=== PATIENT | female | born 1955 | race Caucasian/White ===

== ENCOUNTER → 2017-07-26 | Outpatient (CLI) | payer MEDICARE, MEDICAID ==
[2017-07-26 12:10] LABS: BUN 10 mg/dL (7-18); GFR (ESTIMATED) 227 ML/MIN (59-)
== END ==
LOC: LAB 11:30
PROVIDERS: Surgery
DX: R19.00 Intra-abdominal and pelvic swelling, mass and lump, unspecified site (principal)

== ENCOUNTER → 2017-07-31 | Outpatient (CLI) | payer MEDICARE, MEDICAID ==
--- NOTE | 2017-07-31 19:40 | RADIOLOGY REPORT PS360 ---
CT ABD PELVIS W/ CONTRAST HISTORY: Abdominal SWE;;ING TENDERNESS 4 months.,MID ABD PAIN,POSS HERNIA history of renal cell cancer Patient Age: 62 years: Female Ordering Physician: Art Day MD TECHNIQUE: Helical CT scanning performed the abdomen and pelvis following 75 cc Isovue-370 contrast.. 10 minute Delayed images included. Sagittal coronal images from the earlier image set included. COMPARISON :CT abdomen and pelvis from 12/22/2015 and May 2015 FINDINGS Lung bases clear heart normal size Heart. There is some generous fat density along and possibly indenting the aspect of the right atrium this appears similar to 2015. If there should be chest symptoms remain with consider echocardiogram to further evaluate. Liver. No focal lesion. Question slightly nodular anterior margin the left lobe which could reflect developing cirrhosis. I would consider liver upper normal size. However the portal vein appears mildly prominent measuring just over 17 mm. Cholecystectomy. No biliary ductal dilatation. Spleen is enlarged. . Measures over 15 cm length. 16 cm AP 6-7 cm wide. The lung, generous adrenal glands bilaterally appears similar to thousand 15. This is most evident on the left and could reflect some underlying small a adrenal nodules. Stable appearance with no change. Pancreas unremarkable. Scattered para-aortic lymph nodes but these remain small & similar in size to the previous CT studies. It Right kidney again see the 2.8 x 2.6 cm mass at posterior lower pole right kidney. It contains fat & has has remained stable..-Compatible with angiomyolipoma. Left kidney. 21 mm Cyst at the mid/upper portion left kidney is slightly larger measures fluid density and does not enhance compatible with a simple cyst. I may be a small calcification at its superior lateral margin but it appears to be a benign cyst. No obstruction or calculi in either kidney. Ureters appear normal. Pelvis. Previous hysterectomy. No adnexal mass. GI tract generous stool at the right and transverse colon. Midline eventration/likely reflecting ventral diastases with focal bulging of the abdominal wall just above the umbilicus with a small umbilical hernia is below this. This is been seen previously and appears stable since 2015\ Osseous. No significant findings IMPRESSION: 1. Stable 2.8 cm angiomyolipoma posterior right kidney. 2. Only slight progression size of the 2.1 cm benign-appearing cyst at mid portion left kidney.. 3. No urinary tract calculi nor obstruction. 4. Splenomegaly 5. Question suspect mild developing cirrhosis.. Slight undulation anterior margin left lobe . Mildly prominent portal vein also noted. Liver upper normal size 6. Scattered small intraperitoneal nodes unchanged 2014 7. Stable Bulging midline abdominal wall,/ventral diastases just superior to umbilicus. Small Fat-containing umbilical hernia again noted 7. No new findings
== END ==
LOC: RAD 08:43
DX: R19.00 Intra-abdominal and pelvic swelling, mass and lump, unspecified site (principal)

== ENCOUNTER → 2017-08-16 | Outpatient (CLI) | payer MEDICARE, MEDICAID ==
[~2017-08-16] MED LIST: ALPRAZOLAM0.25 MG PO; ASSORTED FRUIT G4 GM PO; CEFDINIR 300MG300 MG PO; CRESTOR10 MG PO; CYCLOBENZAPRINE10 M1 PO; DEXAMETHASONE 4M4 MG PO; DEXILANT60 MG PO; FISH OIL 120 MG1 CAP PO; FISH OIL1000 MG PO; HYDROCHLOROTHIA25 M1 PO; INSULIN GL100 UNITS/ SC; IPRATROPIUM BROM3 M1 IH; KAPIDEX60 MG PO; LANTUS INS100 UNITS/ SC; MYRBETRIQ50 MG PO; NOVOLOG FLEX100 U/ML SC; OXYGEN IH; QUETIAPINE FUM200 M1 PO; QUETIAPINE FUM200 MG PO; ROSUVASTATIN CA10 MG PO; SYMBICORT1 AE1 IH; TRAZADONE HYDR100 MG PO; TRAZODONE100 MG PO; VENLAFAXINE HCL50 MG PO; VENTOLIN H0.09 MG/Ac IH; VICTOZA6 MG/ML SC; ZITHROMAX TRI-500 M1 PO
--- NOTE | 2017-08-16 11:14 | RADIOLOGY REPORT PS360 ---
PROCEDURE: 2-D M-mode and color Doppler study INDICATIONS FOR THE TEST: Chest pain COPDX Heart Murmur Tobacco SmokingX Palpitations Fatigue Syncope Edema Hypertension Diabetes MellitusX Rheumatic Fever SOBXDOEXObesityXHyperlipidemia Family History HD Additional History ABN EKG PATIENT INFORMATION HEIGHT: 66 WEIGHT:201 GENDER: Female B/P:120/57 2-D/M-MODE INTERPRETATION: 2-D MEASUREMENTS OBSERVED VALUES IN CMS Right Ventricular Dimension (RVDd) 1.4 Interventricular Septum (Thickness)(IVsd) 1.2 Left Ventricular Internal Dimensions(LVIDd) 5.2 Left Ventricular Posterior Wall (Thickness)(LVPWd) 1.1 Aortic Root 3.7 Aortic Cusp Separation 2.1 Left Atrial Dimensions (LAD) 3.2 2D 1. Left atrium is qualitatively mildly enlarged, left ventricle is normal size, mild concentric left ventricular hypertrophy, hyperdynamic left ventricular systolic function, visually estimated ejection fraction was 65% with no obvious regional wall motion abnormality, septum has sigmoid configuration. 2. The right atrium and right ventricle are normal size and contractility. 3. The aortic valve is minimally thickened and fibrosed . 4. The mitral and tricuspid valve are grossly normal. 5. The pulmonic valve is poorly visualized. 6. No significant pericardial effusion noted. DOPPLER INTERROGATION: Doppler interrogation of the aortic, mitral and tricuspid valvular presence of mild mitral and tricuspid regurgitation, tricuspid and jet velocity insufficient for calculation of the right ventricular systolic pressure, grade 1 diastolic dysfunction seen without tissue Doppler evidence of raised left atrial pressure CONCLUSION: 1. Qualitatively mildly enlarged left atrium, normal left ventricular size, mild concentric left ventricular hypertrophy, visually estimated ejection fraction is 65% with no obvious regional wall motion abnormality, septum has sigmoid configuration, grade 1 diastolic dysfunction seen without tissue Doppler evidence of raised left atrial pressure. 2. Mild mitral and tricuspid regurgitation. 3. No significant pericardial effusion noted.
--- NOTE | 2017-08-16 12:44 | RADIOLOGY REPORT PS360 ---
History and Indications: Congestive heart failure, diabetes, hyperlipidemia, tobacco use, family history, chest pain, shortness of breath, syncope and abnormal EKG Procedure: Patient received a 0.4 mg of Lexiscan, resting heart rate was 94 bpm resting blood pressure 141, scan maximum heart rate achieved was 113 bpm which is less than 85% of the maximum predicted heart rate and a blood pressure was 119/57. The scan patient denied any complained of chest pain or shortness of breath Electrocardiogram: Resting electrocardiogram showed sinus rhythm . With Lexiscan there is less than 1.[address] segment depression noted from the baseline EKG. The EKG portion of the Lexiscan Myoview is nondiagnostic. Cardiac stress and resting SPECT images: Cardiac stress and rest SPECT images were obtained using technetium 99 Myoview 10.5 mCi at rest and 30.7 mCi at stress, gated SPECT further analysis of segmental wall motion and calculation of ejection fraction. Cardiac stress and the rest spect images show uniform myocardial activity without segmental perfusion abnormality, computer derived ejection fraction is over 65% with no obvious regional wall motion abnormality, right ventricle is normal size and contractility. Conclusion: 1. The EKG portion of the Lexiscan Myoview is nondiagnostic. 2. No obvious scintigraphic evidence of reversible, computer derived ejection fraction is over 65% with no obvious regional wall motion abnormality, right ventricle is normal size and contractility.
== END ==
LOC: RAD 07:13
DX: R94.31 Abnormal electrocardiogram [ECG] [EKG] (principal); R06.02 Shortness of breath
CPT/HCPCS: A9502; J2785

== ENCOUNTER → 2017-09-16 | Outpatient (CLI) | payer MEDICARE ==
--- NOTE | 2017-09-16 13:01 | RADIOLOGY REPORT PS360 ---
CHEST(2 VIEWS-NOT PORTABLE) HISTORY: BRONCHITIS ORDERING PHYSICIAN: Blanca Shipley APRN PATIENT AGE: 62 years COMPARISON: 04/06/2017 FINDINGS: The cardiomediastinal silhouette and pulmonary vascularity are within normal limits. There are coronary artery calcifications. There is mild coarsening of the bronchovascular markings with mild hyperinflation consistent with obstructive chronic bronchitis. Previously noted infiltrate in right lower lobe has improved. No acute bony anomalies. IMPRESSION: 1. Obstructive chronic bronchitis. 2. Coronary artery disease
== END ==
LOC: RAD 11:15
DX: J40 Bronchitis, not specified as acute or chronic (principal)

== ENCOUNTER 2017-10-07 07:36 | Day surgery (SDC) | payer MEDICARE, MEDICAID ==
[2017-10-07 08:06] LABS: LYMPH # 1.5 K/mm3 (0.7-4.5); LYMPH % 20.5 % (10-50.0)
[2017-10-07 08:08] LABS: BUN 10 mg/dL (7-18)
[2017-10-07 08:13] LABS: GFR (ESTIMATED) 51 ML/MIN (59-)
--- NOTE | 2017-10-07 09:27 | RADIOLOGY REPORT PS360 ---
CARDIAC CATHETERIZATION DATE OF CATHETERIZATION:10/07/2017 8:13 AM PROCEDURES: 1. Left heart catheterization 2. Left ventriculogram 3. Selective coronary angiogram INDICATION FOR TEST: 1. Class III to IV angina pectoris 2. Known coronary artery disease Informed consent was obtained prior to the procedure. COMPLICATIONS: None ESTIMATED BLOOD LOSS: Less than 10 ml. TECHNIQUE: One percent lidocaine used to anesthetize the right anterior aspect of the wrist. The right radial artery was accessed via the Seldinger technique. A 6 Uzbek sheath was placed in the right radial artery. 2.5 mg of verapamil, 800 mcg of nitroglycerin and 5000 U Heparin were given through the arterial sheath. The trap catheter was also used to perform left heart catheterization and left ventriculography. At the end of the procedure the patient was transferred to the post-op holding area in stable condition for arterial sheath removal. ANGIOGRAPHIC RESULTS: 1. The left main artery has mild vascular ectasia with no focal stenosis 2. The left anterior descending artery has proximal mild vascular ectasia with 20% stenoses. Of interest during the first 2 angiographic shots the mid LAD was occluded however after the third injection the LAD then opened and had LOLIS-3 flow. 3. The ramus intermedius has a stent in its proximal segment which is widely patent free of in-stent restenosis 4. The circumflex artery is a large dominant vessel and has an ostial 30% stenosis with mild vascular ectasia. The terminal obtuse marginal artery has a moderate to severe vascular ectatic area which holds contrast and has LOLIS II flow 5. The right coronary artery is a small nondominant vessel and normal 6. The DEEWY ventriculogram reveals normal 65% 7. The left ventricular end-diastolic pressure 20 mmHg IMPRESSION: 1. Widely patent stent in the proximal ramus 2. Intermittent coronary artery spasm involving the LAD which causes complete blood loss from the mid LAD distally 3. Diffuse vascular ectasia 4. Rather severe endothelial dysfunction 5. Normal ejection fraction 6. Mildly elevated LVEDP PLAN: 1. Patient should be on a dihydropyridine calcium channel blockers such as amlodipine combined with a long-acting nitrate 2. LDL less than 55 3. Avoidance of tobacco products 4. Cardiac rehabilitation 5. Low dose diuretics may benefit by decreasing LVEDP and improving endothelial flow
[2017-10-07 12:51] VITALS: BP 117/63
== END 2017-10-07 12:52 | disposition home or self-care (01) ==
LOC: CATHLAB 07:36
PROVIDERS: Internal Medicine
PROC: B2111ZZ Fluoroscopy of Multiple Coronary Arteries using Low Osmolar Contrast (ICD-10-PCS; 2017-10-07)
PROC: B2151ZZ Fluoroscopy of Left Heart using Low Osmolar Contrast (ICD-10-PCS; 2017-10-07)
PROC: 4A023N7 Measurement of Cardiac Sampling and Pressure, Left Heart, Percutaneous Approach (ICD-10-PCS; principal; 2017-10-07 08:30)
DX: I25.119 Atherosclerotic heart disease of native coronary artery with unspecified angina pectoris (principal); F17.200 Nicotine dependence, unspecified, uncomplicated; I20.8 Other forms of angina pectoris; E11.9 Type 2 diabetes mellitus without complications; I10 Essential (primary) hypertension; R06.09 Other forms of dyspnea; J44.9 Chronic obstructive pulmonary disease, unspecified; I50.9 Heart failure, unspecified
CPT/HCPCS: C1725; C1769; J1644; Q9967

== ENCOUNTER → 2017-10-14 | Outpatient (CLI) | payer MEDICARE, MEDICAID ==
--- NOTE | 2017-10-17 15:15 | RADIOLOGY REPORT PS360 ---
EXAM: CT LUNG LOW DOSE WO CONTRAST COMPARISON: . CXR chest film 09/16/2017 HISTORY: Current Smoker.. One pack per day for 46 years = 46 pack years patient asymptomatic RADIATION DOSE: CTDI vol(CT dose Index-volume) = 2.96mGy DLP (Dose Length Product) = 119.25 mGy-cm FINDINGS: Nonspecific Nodule posterior aspect right lung Lung RADS Category: 4A. Indeterminate nodule measuring 7.9 times 8 mm x 5.7 mm is seen at the posterior aspect of right upper lung- at or just above the major fissure. Suspect may be a benign fissural nodule/node . This warrants a follow-up CT in 3-4 months evaluate for stability or interval change... Alternatively pet /CT could also be utilized and I believe a follow-up CT should be adequate. Reviewing old chest films only question that this density could be evident.-cannot be confirmed on old CXR studies.. No previous CT chest studies Benign nodules(LUNG-RADS Category1)calcified granuloma measuring up to 5 mm mm maximally is seen at the superior segment right lower lobe just posterior to the junction of major and minor fissure. Axial slice 51 sagittal 25 coronal 52. Lungs. Clear Scant very minor early emphysematous changes no pneumonia. No focal lesion. . Mediastinum Calcified right hilar nodes ovary most disease Scattered small mediastinal lymph nodes with largest measuring 11 mm it most likely reactive nodes. Generous caliber of pulmonary arteries could reflect underlying pulmonary hypertension but nonspecific. Heart Dense coronary artery circumflex and LAD incidentally noted . Pleura and chest wall: No pleural effusion or pleural lesions. No chest wall abnormalities. Mild wedge configuration at T11 most likely congenital feature at this region although could reflect a very very minor old wedge compression fracture stable since studies dating back to 2014. IMPRESSION: 1. Lung RADS Category: 4A. Indeterminate , mild suspicious soft tissue pulmonary nodule posterior right upper chest.measuring 8 mm x 5.7 mm Possible benign fissural nodule/node as is located at or just along superior aspect major fissure. . This warrants a follow-up CT in 3-4 months to further evaluate for stability versus interval change.. 2. Other benign findings: . 5 mm Benign calcified granulomas RLL with calcified hilar nodes reflecting old remote disease. 3. Dense coronary artery circumflex and LAD incidentally noted . Mild emphysematous changes. 4. Small 1 cm hyperdense renal cyst posterior right kidney likely small hemorrhagic cyst. Partial imaged RECOMMENDATIONS: 3-[address] chest follow-up ===== TECHNIQUE: The exam was performed on a GE Light Speed [address] scanner using 3.0 mGy CTDI. A low dose helical CT CHEST was performed on a multi-detector scanner The LDCT was performed in a facility that meets the criteria for the screening program. Data regarding this exam was submitted to ACR which is an approved registry. The order for this exam indicates that it came as a result of a lung cancer screening counseling shard decision-making visit that included all the elements required of such a visit including smoking cessation. The radiologist interpreting this exam meets the CMS criteria for the LDCT lung cancer screening program. The exam is reported using the Lung-RADS classification scale and reported to the ACR registry. NOTE: This study was performed for the specific purposes of lung cancer screening and is not an alternative to diagnostic chest CT.
== END ==
LOC: RAD 14:34
DX: Z87.891 Personal history of nicotine dependence (principal); Z12.2 Encounter for screening for malignant neoplasm of respiratory organs
CPT/HCPCS: G0297